=== PATIENT | female | born 1930 | race Caucasian/White ===

== ENCOUNTER → 2016-12-26 | Outpatient (CLI) | payer MEDICARE, OTHER ==
[~2016-12-26] MED LIST: ACETAMINOPHEN500 M5 PO; ALPRAZOLAM ER0.5 MG PO; ALPRAZOLAM PO; ALPRAZOLAM0.25 MG PO; ALPRAZOLAM0.5 MG PO; ANTIVERT PO; APAP325 M2 PO; APRESOLINE PO; ASPIRIN EC81 M1 PO; ASPIRIN PO; ASPIRIN81 MG PO; ATENOLOL PO; ATENOLOL25 MG PO; BISACODYL5 M1 PO; CEFTIN PO; CLARITHROMYCIN500 M2 PO; FERREX 150 FOR1 EACH PO; FERREX 150 PLU1 EACH PO; FLONASE SENSIM9.9 ML; HYDRALAZINE HCL25 MG PO; HYDRALAZINE HCL50 MG PO; HYDROCHLOROTHIA25 MG PO; LEVAQUIN250 MG PO; LIPITOR40 MG PO; LISINOPRIL PO; LISINOPRIL-HCTZ1 T16 PO; LISINOPRIL20 MG PO; METRONIDAZOLE PO; OMEPRAZOLE20 M1 PO; ONDANSETRON ODT4 MG PO; PRINIVIL40 MG PO; PROTONIX PO; REMERON PO; REMERON15 MG PO; TENORMIN25 MG PO; TENORMIN50 MG PO; TRAMADOL HCL50 M2 PO; TYLENOL325 M1 PO; VERAMYST10 GM; VIBRAMYCIN100 M1 PO; VITAMIN D250000 UNIT PO; XANAX0.5 MG PO
--- NOTE | ~2016-12-26 | MY11 ---
[facility] A Service of [facility] RADIOLOGY TEXT RESULTS PATIENT: ELLIOTT GRISSOM LOCATION: [facility] : 30 UNIT #: [id number] AGE: [address]: Toño Iraheta MD SEX: F ORDER DR: [id number] [facility] [address] [place], [place] [address] [id number] O MR#: [id number] #: [id number] NAME: ELLIOTT GRISSOM : 1930 SEX: F STUDY DATE/TIME: 12/26/2016 10:43 UNIT: [facility] ROOM: STUDY DESCRIPTION: MY Mammogram Screening Dig Hadley Attending Physician: Toño Iraheta M.D. Referring Physician: Toño Iraheta M.D. Ordering Physician: Toño Iraheta M.D. Primary Care Physician: Toño Iraheta M.D. MEDICAL IMAGING REPORT This report is preliminary unless electronic signature is present EXAM Digital screening mammogram, 12/26/2016 HISTORY 86-year-old woman no risk elevation. Two prior excisional biopsies right breast indicated benign. Annual screening. COMPARISON Mammograms date to 12/16/2004 with most recent comparison 05/23/2015. FINDINGS Digital imaging of each breast was completed utilizing screening protocol. Biopsy markers were placed on the right breast. Review includes FDA-approved CAD device. Breast parenchyma is only partially fatty replaced and moderately dense given the patient age. There is no interval occurring mass and I see no suspicious microcalcifications. There is nonspecific skin thickening noted on the right side which appears to be progressive. This is nonspecific. Correlate clinically. Left breast remains stable and negative. IMPRESSION Benign mammogram. Suggested progression of nonspecific skin thickening right breast. Correlate clinically. Annual screening is certainly optional at this age. Patients over the age of 40 are entered into a reminder system with target due date for the next mammogram. A result letter will also be sent to the patient. BIRADS: 2 Benign Finding Dictated by... [facility] A Service of [facility] RADIOLOGY TEXT RESULTS PATIENT: ELLIOTT GRISSOM LOCATION: [facility] : 30 UNIT #: [id number] AGE: [address]: Toño Iraheta MD SEX: F ORDER DR: Sim Morales M.D. THIS IS AN ELECTRONICALLY VERIFIED REPORT Sim Morales M.D. at 12/26/2016 1:59 PM Carol TD: 12/26/2016 12:29 JOB #: [id number] MEDICAL IMAGING REPORT Page 1 of 1 COPY
== END | disposition home or self-care (01) ==
LOC: CWCC 10:20
DX: Z12.31 Encounter for screening mammogram for malignant neoplasm of breast (principal); R23.4 Changes in skin texture; Z98.890 Other specified postprocedural states
CPT/HCPCS: G0202

== ENCOUNTER 2017-01-17 11:55 | Emergency (ER) | payer MEDICARE, OTHER ==
--- NOTE | ~2017-01-17 | EKG ---
PATIENT: ELLIOTT GRISSOM UNIT #: [id number] Ventricular Rate: 58 BPM Atrial Rate: 58 BPM P-R Interval: 144 ms QRS Duration: 78 ms Q-T Interval: 428 ms QTC Calculation(Bezet): 420 ms P [place]: 50 degrees Calculated R [place]: 12 degrees Calculated T [place]: 51 degrees Diagnosis Line: Sinus bradycardia with Premature supraventricular Diagnosis Line: complexes Diagnosis Line: Nonspecific ST abnormality Diagnosis Line: Abnormal ECG Diagnosis Line: When compared with ECG of 19-JUL-2016 17:57, Diagnosis Line: No significant change was found Diagnosis Line: Confirmed by HANK GRAJEDA MD ([id number]) on Diagnosis Line: 01/17/2017 9:37:13 PM INTERPRETING MD: DAMIAN
--- NOTE | ~2017-01-17 | MR18 ---
[facility] A Service of [facility] RADIOLOGY TEXT RESULTS PATIENT: ELLIOTT GRISSOM LOCATION: [facility] : 30 UNIT #: [id number] AGE: [address]: Casey Ibanez MD SEX: F ORDER DR: [id number] [facility] [address] [place], [place] [address] [id number] E MR#: [id number] Acc #: [id number] NAME: ELLIOTT GRISSOM : 1930 SEX: F STUDY DATE/TIME: 01/17/2017 13:39 UNIT: [facility] ROOM: STUDY DESCRIPTION: MR Brain Wo Contrast Attending Physician: Casey Ibanez M.D. Ordering Physician: Casey Ibanez M.D. Primary Care Physician: Toño Iraheta M.D. MRI CENTER REPORT This report is preliminary unless electronic signature is present. EXAM Brain MRI without HISTORY Neurologic deficit. Right sided headache and diaphoresis starting last evening with right sided facial numbness. History of hypertension and cardiac disease. No history of cancer. COMMENT MRI of the brain was performed without contrast using routine 1.5T imaging technique. Comparison head CT is from 07/21/2016. There is no evidence for a recent ischemic insult on the diffusion series. No MRI evidence for intracranial hemorrhage. No extraaxial fluid collection. There is extensive white matter disease as well as extensive signal abnormality in the bilateral basal ganglia, thalami to a lesser extent the brainstem. This is probably all due to small vessel disease given the patient's age group. There is unfortunately motion limitation of the study. No intracranial mass effect is appreciated. The major intracranial flow voids are maintained. The mastoid air cells are clear. The patient has had cataract surgery bilaterally. The paranasal sinuses are clear. There is no Chiari-I malformation. Degenerative change in the visualized upper cervical spine. IMPRESSION 1. No acute intracranial abnormality is appreciated. Allowing for motion, there is no evidence for recent ischemic insult on the diffusion series. There is fairly extensive probable sequelae of small vessel disease and generalized atrophy. There is no intracranial mass effect or extraaxial fluid collection. [facility] A Service of [facility] RADIOLOGY TEXT RESULTS PATIENT: ELLIOTT GRISSOM LOCATION: [facility] : 30 UNIT #: [id number] AGE: [address]: Casey Ibanez MD SEX: F ORDER DR: Dictated by... Bethany Jones M.D. THIS IS AN ELECTRONICALLY VERIFIED REPORT Bethany Jones M.D. at 01/17/2017 5:23 PM SAC/rnr TD: 01/17/2017 15:45 JOB #: [id number] MRI CENTER REPORT Page 1 of 1 COPY
[~2017-01-17 11:55] MED LIST changes: -ALPRAZOLAM ER0.5 MG PO; -ASPIRIN81 MG PO; -FERREX 150 FOR1 EACH PO; -FLONASE SENSIM9.9 ML; -REMERON PO; -TENORMIN25 MG PO; -TYLENOL325 M1 PO
[2017-01-17 12:32] LABS: POC - CKMB <1.0 ng/mL (0.0-7.9); POC - TROPONIN <0.05 ng/mL (<=0.05)
[2017-01-17 12:40] LABS: BASOPHIL# 0.1 X10e3 (0-0.3); BASOPHIL% 0.8 % (0-2.5); EOSINOPHIL# 0.2 X10e3 (0-0.7); EOSINOPHIL% 2.7 % (0.0-7.0); HEMATOCRIT 32.6 % (35.0-45.0); HEMOGLOBIN 10.6 gm/dL (12.0-16.0); LYMPHOCYTE# 1.1 X10e3 (1.0-3.5); LYMPHOCYTE% 13.3 % (17.0-45.0); MEAN CELL VOLUME 98.5 FL (83-96); MEAN CORPUSCULAR HEMOGLOBIN 31.9 PG (28-34); MEAN CORPUSCULAR HGB CONC 32.4 g/dL (30-36); MONOCYTE# 0.9 X10e3 (0-1.0); MONOCYTE% 11.4 % (3.0-12.0); NEUTROPHIL# 5.7 X10e3 (1.5-7.1); NEUTROPHIL% 71.8 % (40-75); PLATELET COUNT 141 X10e3 (140-420); RED BLOOD COUNT 3.31 X10e (3.90-5.30); RED CELL DISTRIBUTION WIDTH 14.3 % (11.0-15.5); WHITE BLOOD COUNT 7.9 X10e3 (4.0-10.5)
[2017-01-17 12:41] LABS: DIFF IND NO
[2017-01-17 12:54] LABS: PARTIAL THROMBOPLASTIN TIME 31.2 SECONDS (23.5-31.3); PROTHROMBIN TIME (PATIENT) 10.8 SECONDS (9.6-11.5)
[2017-01-17 13:04] LABS: BUN/CREATININE RATIO 16.42; CALCIUM SERUM 8.9 mg/dL (8.4-10.2); CREATININE SERUM 1.4 mg/dL (0.6-1.4); GLOM FILT RATE Estimated 33.9 mL/min (>60)
== END 2017-01-17 16:08 | disposition home or self-care (01) ==
LOC: CED 11:55
PROVIDERS: Emergency Medicine
DX: R20.2 Paresthesia of skin (principal); F41.9 Anxiety disorder, unspecified; Z88.0 Allergy status to penicillin; Z88.2 Allergy status to sulfonamides; Z79.899 Other long term (current) drug therapy
CPT/HCPCS: 70551; 80048; 82553; 84484; 85025; 85610; 85730; 93005; 99284

== ENCOUNTER → 2017-01-29 | Outpatient (CLI) | payer MEDICARE, OTHER ==
[~2017-01-29] MED LIST changes: +ALPRAZOLAM ER0.5 MG PO; +ASPIRIN81 MG PO; +FERREX 150 FOR1 EACH PO; +FLONASE SENSIM9.9 ML; +REMERON PO; +TENORMIN25 MG PO; +TYLENOL325 M1 PO
--- NOTE | ~2017-01-29 | US37 ---
[facility] A Service of [facility] RADIOLOGY TEXT RESULTS PATIENT: ELLIOTT GRISSOM LOCATION: [facility] : 30 UNIT #: [id number] AGE: [address]: Toño Iraheta MD SEX: F ORDER DR: [id number] [facility] [address] [place], [place] [address] [id number] O MR#: [id number] Acc #: [id number] NAME: ELLIOTT GRISSOM : 1930 SEX: F STUDY DATE/TIME: 01/29/2017 9:35 UNIT: [facility] ROOM: STUDY DESCRIPTION: US Carotid W/Doppler Bilateral Attending Physician: Toño Iraheta M.D. Referring Physician: Toño Iraheta M.D. Ordering Physician: Toño Iraheta M.D. Primary Care Physician: Toño Iraheta M.D. MEDICAL IMAGING REPORT This report is preliminary unless electronic signature is present EXAM Carotid Doppler, bilateral, 01/29/2017. HISTORY Syncope and headache for 2 weeks. TIA. Internal carotid artery stenosis. Numbness in right side of face, right arm, and right leg for 2 weeks. Hypertension and elevated cholesterol levels. Evaluate for carotid stenosis. TECHNIQUE Grayscale carotid artery images were obtained, as well as Doppler wave forms, spectral analysis, and color flow Doppler imaging. The examination was interpreted according to NASCET criteria. FINDINGS There is elevated peak systolic velocity in the distal right internal carotid artery of 194 cm/sec, characteristic of approximately 50% to 69% diameter reduction. Peak velocity in the right common and external carotid arteries was 90 cm/sec and 75 cm/sec, respectively. There is no hemodynamically significant stenosis in the left internal carotid artery, which demonstrated peak systolic velocity of 116 cm/sec. Peak velocity in the left common and external carotid arteries was 79 cm/sec and 75 cm/sec, respectively. Antegrade blood flow is seen in both vertebral arteries. There is minimal calcified plaque bilaterally. IMPRESSION 1. Approximately 50% to 69% diameter reduction involving the distal right internal carotid artery. 2. No hemodynamically significant stenosis in the left internal carotid artery. 3. Antegrade blood flow in both vertebral arteries. [facility] A Service of [facility] RADIOLOGY TEXT RESULTS PATIENT: ELLIOTT GRISSOM LOCATION: [facility] : 30 UNIT #: [id number] AGE: [address]: Toño Iraheta MD SEX: F ORDER DR: STAT * RESULT Dictated by... Tima Butler M.D. THIS IS AN ELECTRONICALLY VERIFIED REPORT Tima Butler M.D. at 01/30/2017 2:09 PM AKIN/jasmeet TD: 01/29/2017 15:44 JOB #: [id number] MEDICAL IMAGING REPORT Page 1 of 1 COPY
== END | disposition home or self-care (01) ==
LOC: CNIV 08:56
DX: I65.21 Occlusion and stenosis of right carotid artery (principal)
CPT/HCPCS: 93880

== ENCOUNTER → 2017-03-20 | Outpatient (CLI) | payer MEDICARE, OTHER ==
--- NOTE | ~2017-03-20 | US98 ---
[facility] A Service of [facility] RADIOLOGY TEXT RESULTS PATIENT: ELLIOTT GRISSOM LOCATION: [facility] : 30 UNIT #: [id number] AGE: [address]: Toño Iraheta MD SEX: F ORDER DR: [id number] [facility] [address] [place], [place] [address] [id number] O MR#: [id number] Acc #: [id number] NAME: ELLIOTT GRISSOM : 1930 SEX: F STUDY DATE/TIME: 03/20/2017 9:33 UNIT: [facility] ROOM: STUDY DESCRIPTION: US Pelvic Non-OB Complete Attending Physician: Toño Iraheta M.D. Referring Physician: Toño Iraheta M.D. Ordering Physician: Toño Iraheta M.D. Primary Care Physician: Toño Iraheta M.D. MEDICAL IMAGING REPORT This report is preliminary unless electronic signature is present EXAM Pelvic ultrasound INDICATION Postmenopausal vaginal bleeding 2 weeks ago. Single episode. PROCEDURE Benitez-scale, Doppler imaging of the pelvis via transabdominal and transvaginal approach. COMPARISON 01/20/2015 FINDINGS Pelvic structures are not well seen transabdominally. On transvaginal images the uterus is anteverted and measures 2.7 x 2.6 x 1.7 cm. Endometrium measures 5.0 mm in thickness. The ovaries are not well seen on the study. IMPRESSION 1. Endometrium measures 5.0 mm which is upper limits of normal for a postmenopausal female. This could be followed to document any interval change. Alternatively, endometrial sampling may be warranted. 2. The ovaries are not clearly seen. Dictated by... Kobi Sheffield M.D. THIS IS AN ELECTRONICALLY VERIFIED REPORT Kobi Sheffield M.D. at 03/21/2017 10:08 AM Vivian [facility] A Service of [facility] RADIOLOGY TEXT RESULTS PATIENT: ELLIOTT GRISSOM LOCATION: [facility] : 30 UNIT #: [id number] AGE: [address]: Toño Iraheta MD SEX: F ORDER DR: TD: 03/20/2017 15:48 JOB #: [id number] MEDICAL IMAGING REPORT Page 1 of 1 COPY
== END | disposition home or self-care (01) ==
LOC: CWCC 08:35
DX: N95.0 Postmenopausal bleeding (principal)
CPT/HCPCS: 76856

== ENCOUNTER 2017-05-01 10:16 | Observation (INO) | payer MEDICARE, OTHER ==
[~2017-05-01] VITALS: Ht 127 cm; Wt 37.2 kg
--- NOTE | ~2017-05-01 | A ---
[facility] Nutrition Therapy DATE: 05/03/17 Patient: ELLIOTT GRISSOM Physician: GARY Address: [address] [place] [address] STREET Room/Bed: [address] [place] [address], Zip: [place] [address] Admit Date: 05/01/17 Date of : 30 Height: 4 2 Weight: 81 37 NUTRITIONAL ASSESSMENT: REASON: Low BMI Admitting dx: 86 y/o female admitted with chest pain, cardiology diagnosed with uncontrolled HTN PMH: HTN, OA, HLD, PAD, CKD stage III, osteoporosis Anthropometrics: *Heights in [employer] conflicting; pt thinks she is 58", reports she has lost inches over the years, Wt: 83 lbs (pt confirms), BMI: 17.3 (underweight), 87% IBW [employer] weight in 2016: 98 lbs Labs: BUN 25, Creat 1.5, GFR 31.2, lytes/glucose/lipid panel WNL Meds: Zofran prn I/O & Bowel function: BM 04/30, denies N/V Skin Integrity: No significant issues, no edema Estimated Nutrition Needs: Increased due to underweight status and questionable weight loss Assessment: Chart reviewed, events noted. See admitting dx and PMH as stated above. See anthropometrics above. Pt is clinically underweight with unsure weight loss. Scored 0 points on the malnutrition risk screening however pt's friend at bedside says "she is smaller and smaller everytime I see her." 2016 weight in [employer] reflects a potential 13 lb weight loss in approx. 1 year (13.3% BW loss; significant) if weights are accurate. She is on a healthy heart diet, ate ~75% of breakfast this morning. Says she never eats much at one sitting and after she cooks at home does not feel like eating. RD encouraged adequate kcal/protein intake to promote weight gain. Pt reports not liking regular Ensure but is amenable to trying Ensure clear- will order. Encouraged pt to buy Ensure clear at grocery/drug store for home. See RD recs below, will follow hospital course. Dx: Underweight r/t advancing age, variable appetite/PO intake AEB BMI 17.3. Intervention: Regular diet, Ensure clear BID Monitoring, Evaluation and Goals: 1. PO intake > 50% of meals/supps. 2. Gradual weight gain towards a healthy BMI range. [facility] Nutrition Therapy DATE: 05/03/17 Patient: ELLIOTT GRISSOM Physician: GARY Address: [address] [place] [address] STREET Room/Bed: [address] [place] [address], Zip: [place] [address] Admit Date: 05/01/17 Date of : 30 Height: 4 2 Weight: 81 37 Monitor: per protocol, criteria to determine if above goals met Recommendations: 1. Please change diet to regular to liberalize food choices and order apple Ensure clear BID to provide extra oral kcals/protein to promote weight gain. 2. Please weigh q 3 days for monitoring purposes, as the pt is clinically underweight. RD will follow Mild nutrition risk Respectfully, Linda Garcia RD, LD [employer] [facility] [employer] cc: client file
--- NOTE | ~2017-05-01 | DS ---
Unit #: [id number] #: [id number] Patient: ELLIOTT GRISSOM [id number] [place], [place] [address] [id number] I MR#: [id number] NAME: ELLIOTT GRISSOM ROOM: 568 Age: 86 Sex: F Admission Date: 05/01/2017 : 1930 Discharge Date: 05/04/2017 Attending Physician: Toño Iraheta M.D. Primary Care Physician: Toño Iraheta M.D. DISCHARGE SUMMARY PRINCIPAL DISCHARGE DIAGNOSES 1. Atypical chest pain. 2. Palpitations. 3. Peripheral arterial disease. 4. PSVT. 5. Sinus bradycardia with significant pauses. 6. Hyperlipidemia. 7. Hypertension. 8. Osteoporosis. 9. Osteoarthritis. 10. Generalized anxiety disorder. 11. Chronic kidney disease stage 3. 12. Moderate aortic insufficiency. 13. Moderate mitral regurgitation. PROCEDURE None. LMSW Dr. Tatum. REASON FOR HOSPITALIZATION The patient is an 86-year-old white female with history of hypertension, generalized anxiety disorder, osteoporosis, chronic kidney disease stage 3, osteoarthritis, peripheral arterial disease admitted through the emergency room with palpitations and atypical chest pain. She is a poor historian. She also complained of a headache. In the ER, she was afebrile, slightly bradycardic at 53. Blood pressure was okay. Room air O2 saturation was 98%. Cardiac enzymes were normal. Hemoglobin was 11.3 which is stable and chronic for the patient. BNP was 159. CRP less than 0.5. Sed rate 18. TSH normal. Magnesium normal. LDL 60. GFR 33.9, stable. Chest x-ray: Stable cardiomegaly. No active disease. CT scan of the head: No active disease. EKG: Normal sinus rhythm, LVH, nonspecific ST abnormality. HOSPITAL COURSE The patient was admitted. She was placed on Lovenox, nitroglycerin paste, given aspirin. Cardiology was consulted. Repeat cardiac enzymes obtained and within normal range. Patient had significant sinus bradycardia with some minor pauses. Her atenolol was discontinued. She underwent V/Q scan. It showed a low probability of PE. She had an echo that showed a normal EF of 55% to 60%. No regional wall motion abnormalities, moderate aortic regurgitation, moderate mitral regurgitation, moderate tricuspid regurgitation, moderate pulmonary regurgitation, right ventricular Unit #: [id number] #: [id number] Patient: ELLIOTT GRISSOM systolic pressure of 55 mmHg. Her hydralazine dose was increased. Her home medications were reviewed. Patient's improved heart rate. Plan is to arrange for an outpatient event monitor per cardiology and then follow up in their office on July 25 at 1:15 p.m. She will see me in one week. She is a on regular diet. CURRENT MEDICATIONS 1. Tylenol 650 q.6 p.r.n. 2. Flonase nasal spray two sprays in both nostrils daily. 3. Remeron 15 mg p.o. nightly. 4. Xanax 0.25 mg t.i.d. p.r.n. for anxiety. 5. Tenormin is discontinued. 6. She is on hydralazine 100 mg t.i.d. 7. Aspirin 81 mg daily. 8. She is also on Lipitor dose unknown, but she will resume that at home. Dictated by... Toño Iraheta M.D. GEORGE/kavya TD: 05/06/2017 09:43 JOB #: [id number] DISCHARGE SUMMARY Page 1 of 1 X Toño Iraheta MD X DISCHARGE SUMMARY
--- NOTE | ~2017-05-01 | CR63 ---
[facility] A Service of [facility] RADIOLOGY TEXT RESULTS PATIENT: ELLIOTT GRISSOM LOCATION: [facility] [place] [facility] 568-01 : 30 UNIT #: [id number] AGE: [address]: Toño Iraheta MD SEX: F ORDER DR: [id number] [facility] [address] [place], [place] [address] [id number] I MR#: [id number] Acc #: [id number] NAME: ELLIOTT GRISSOM : 1930 SEX: F STUDY DATE/TIME: 05/02/2017 14:42 UNIT: [facility] [place] [facility] ROOM: [facility] STUDY DESCRIPTION: CR Chest 2 View Attending Physician: Toño Iraheta M.D. Ordering Physician: Toño Iraheta M.D. Primary Care Physician: Toño Iraheta M.D. MEDICAL IMAGING REPORT This report is preliminary unless electronic signature is present EXAM Chest x-ray 05/02/2017 INDICATIONS Shortness of air started today. History of hypertension. FINDINGS 2 views of the chest are compared with 05/01/2017. Heart remains enlarged. Lungs remain clear. No pneumothorax. IMPRESSION No active disease and no interval change. Dictated by... Casey Juarez Jr., M.D. THIS IS AN ELECTRONICALLY VERIFIED REPORT Casey Juarez Jr., M.D. at 05/03/2017 4:33 PM ARIELLA/omar TD: 05/02/2017 20:12 JOB #: [id number] MEDICAL IMAGING REPORT Page 1 of 1 COPY
--- NOTE | ~2017-05-01 | EKG ---
PATIENT: ELLIOTT GRISSOM UNIT #: [id number] Ventricular Rate: 59 BPM Atrial Rate: 59 BPM QRS Duration: 66 ms Q-T Interval: 418 ms QTC Calculation(Bezet): 413 ms Calculated R [place]: 12 degrees Calculated T [place]: 43 degrees Diagnosis Line: Normal sinus rhythm Diagnosis Line: Minimal voltage criteria for LVH, may be normal Diagnosis Line: variant Diagnosis Line: Nonspecific ST abnormality Diagnosis Line: Borderline ECG Diagnosis Line: When compared with ECG of 17-JAN-2017 12:15, Diagnosis Line: No significant change was found Diagnosis Line: Confirmed by FRANK VEGA MD ([id number]) on 05/01/2017 Diagnosis Line: 7:46:20 PM INTERPRETING MD: SILVIA PANDYA
--- NOTE | ~2017-05-01 | NM69 ---
[facility] A Service of [facility] RADIOLOGY TEXT RESULTS PATIENT: ELLIOTT GRISSOM LOCATION: [facility] 568-01 : 30 UNIT #: [id number] AGE: [address]: Toño Iraheta MD SEX: F ORDER DR: [id number] [facility] [address] [place], [place] [address] [id number] I MR#: [id number] Acc #: [id number] NAME: ELLIOTT GRISSOM : 1930 SEX: F STUDY DATE/TIME: 05/02/2017 13:53 UNIT: [facility] ROOM: [facility] STUDY DESCRIPTION: NM Pulm Vent and Perf Attending Physician: Toño Iraheta M.D. Ordering Physician: Toño Iraheta M.D. Primary Care Physician: Toño Iraheta M.D. MEDICAL IMAGING REPORT This report is preliminary unless electronic signature is present EXAM VQ lung scan HISTORY Chest pain since yesterday. Shortness of air. FINDINGS Ventilation scan was performed with 24.5 mCi technetium DTPA. Perfusion scan was performed with 4 mCi technetium MAA. Small matched subsegmental ventilation and perfusion defect in the posterior right upper lobe. No additional perfusion defect or VQ mismatch. IMPRESSION Low probability of pulmonary embolus. Dictated by... Shawn Heard M.D. THIS IS AN ELECTRONICALLY VERIFIED REPORT Shawn Heard M.D. at 05/03/2017 10:06 PM DFL/rnr TD: 05/02/2017 16:57 JOB #: [id number] MEDICAL IMAGING REPORT Page 1 of 1 COPY
--- NOTE | ~2017-05-01 | CO ---
Unit #: [id number] #: [id number] Patient: ELLIOTT GRISSOM [id number] [facility]. [address] [address] [id number] MR#: [id number] NAME: ELLIOTT GRISSOM ROOM: 568 Age: 86 Sex: F Admission Date: 05/01/2017 : 1930 Attending Physician: Toño Iraheta M.D. Primary Care Physician: Toño Iraheta M.D. CONSULTATION REPORT REASON FOR CONSULTATION Chest pain. HISTORY OF PRESENT ILLNESS This is an 86-year-old white female who took her blood pressure this morning and felt that it was high. She said she was weak, felt palpitations and was short of breath. She complained of headache. She came to the emergency room where she was found to be hypertensive with blood pressure 198/[address] of the head was normal. EKG shows no acute ischemic changes. Troponin was negative. The patient has risk factors for ischemic heart disease and includes hypertension and family history of premature coronary artery disease. She gives a history of cardiac catheterization years ago. Had a stress test in 2005 that was normal. She lives in assisted living facility and is able to do her chores and cook without symptoms. She says she has intermittent episodes of palpitations where she has a fast heart rate followed by a slow heart rate. She denies syncope or near syncope. Has been told to have paroxysmal supraventricular tachycardia in the past that was controlled on atenolol. PAST MEDICAL HISTORY 1. 2D echocardiogram 03/02/2008 with ejection fraction of greater than 55% with impaired left ventricular relaxation. There is trace mitral regurgitation and mild tricuspid regurgitation. 2. Stress test 06/17/2006 shows no ischemia or infarct. 3. Hypertension. 4. Chronic kidney disease. 5. Paroxysmal supraventricular tachycardia. 6. Chronic anemia. 7. Anxiety. 8. Nonsmoker. PAST SURGICAL HISTORY 1. Right breast cyst removal. 2. Cholecystectomy. 3. Appendectomy. 4. Bilateral cataract extraction. 5. Right hip repair of fracture. 6. Back surgery. SOCIAL HISTORY The patient lives at home alone. She has never smoked. She denies a history of illicit drug or alcohol use. Unit #: [id number] #: [id number] Patient: ELLIOTT GRISSOM FAMILY HISTORY Positive for heart disease in her sister. ALLERGIES Penicillin and sulfa. HOME MEDICATIONS 1. Tenormin 12.5 mg b.i.d. 2. Ferrex 150 mg b.i.d. 3. Flonase, two sprays each nostril daily. 4. Hydralazine 25 mg b.i.d. 5. Remeron 15 mg q. h.s. 6. Xanax 0.5 mg daily. 7. Acetaminophen 325 mg q.6 hours. REVIEW OF SYSTEMS CONSTITUTIONAL: Negative for fever or chills. Has no weight gain, no weight loss. Denies weakness and fatigue. HEENT: Has report of headache but no hearing or visual changes. No difficulty with swallowing. Denies dizziness. CARDIOVASCULAR: Denies chest pain. Reports occasional palpitations. No paroxysmal nocturnal dyspnea or orthopnea. Denies syncope or near syncope. RESPIRATORY: Had a report of shortness of breath this a.m. No cough or hemoptysis. GASTROINTESTINAL: No abdominal pain, nausea or vomiting. No constipation or melena. EXTREMITIES: Reports occasional lower extremity edema. PHYSICAL EXAMINATION VITAL SIGNS: Blood pressure 173/85, heart rate 54, temperature 98.2. BMI 17. GENERAL: This is a thin, frail, 86-year-old, elderly white female who is in no acute respiratory distress. NEUROLOGICAL: She is awake, alert and oriented. There are no focal weaknesses. NECK: Trachea midline. No thyromegaly or lymphadenopathy. No jugular venous distention. HEART: S1, S2 with a mid systolic click. Grade 1 out of 6 systolic murmur. No rubs. Regular rate and rhythm. ABDOMEN: Soft, nontender with bowel sounds present. LUNGS: Clear without rales, rhonchi or wheezing. EXTREMITIES: Without leg edema. SKIN: Warm and dry. DIAGNOSTIC STUDIES LABORATORY: Glucose 97, BUN 22, creatinine 1.4, sodium 139, potassium 4.6, BNP 159. Troponin less than 0.05 x2. White count 6.3, hemoglobin 11.3, hematocrit 34.0, platelet count is 180. IMAGING: Chest x-ray shows no active disease. Stable cardiomegaly. CT of the head shows no acute intracranial process. CARDIOVASCULAR: Electrocardiogram - sinus bradycardia with nonspecific ST wave abnormality. IMPRESSION 1. Uncontrolled hypertension. Unit #: [id number] #: [id number] Patient: ELLIOTT GRISSOM 2. Palpitations, questionable Paroxysmal supraventricular tachycardia secondary to sick sinus syndrome. 3. Anxiety. PLAN 1. Cardiology was asked to see the patient for chest pain. The patient denies any symptoms of angina. She only reports palpitations. Will repeat electrocardiogram. Monitor serial cardiac enzymes and troponin to rule out myocardial infarction. 2. Will increase hydralazine to 50 mg b.i.d. Will also add hydrochlorothiazide to control blood pressure. 3. Agree with aspirin. 4. Lipid profile and TSH will be obtained. 5. Will follow the patient with you. Thank you for allowing us to assist with this patient's care. Dictated by... Sam Loja A.P.R.N. for Jessica Mak/belén TD: 05/02/2017 08:42 JOB #: [id number] CONSULTATION REPORT Page 1 of 1 X Sma Loja APRN X CONSULTATION REPORT
--- NOTE | ~2017-05-01 | HP ---
Unit #: [id number] #: [id number] Patient: ELLIOTT GRISSOM [id number] [address] [place], [place] [address] [id number] MR#: [id number] NAME: ELLIOTT GRISSOM ROOM: 568 Age: 86 Sex: F Admission Date: 05/01/2017 : 1930 Attending Physician: Toño Iraheta M.D. Primary Care Physician: Toño Iraheta M.D. HISTORY AND PHYSICAL HISTORY OF PRESENT ILLNESS This is an 86-year-old white female with history of hypertension, generalized anxiety disorder, osteoporosis, chronic kidney disease - stage 3, osteoarthritis, hyperlipidemia, peripheral arterial disease with known carotid stenosis. Admitted through the emergency room with chest pain, which is extremely atypical. (1) patient but she could not remember whether it occurred at rest or with exertion. She is unclear whether it is related to a deep breath or not. She states that she has no chest pain now. She has been seen by cardiology. Her cardiac enzymes have all been normal. EKG shows no change. Did develop some sinus bradycardia overnight and is on high dose of atenolol at home for PSVT and is admitted for further evaluation. ALLERGIES Penicillin and sulfa drugs. MEDS PRIOR TO ADMISSION 1. Tenormin 12.5 mg b.i.d. 2. Ferrex 150 Forte Plus 1 caplet b.i.d. 3. Flonase nasal spray daily. 4. Hydralazine 25 mg b.i.d. 5. Remeron 15 mg q.h.s. 6. Xanax 0.5 mg 1/2 tab b.i.d. p.r.n. 7. Tylenol p.r.n. 8. She is also on Lipitor, but that is not on her list, and I am not sure of the dose. PAST SURGICAL HISTORY 1. Right breast cyst. 2. Cholecystectomy. 3. Appendectomy. 4. Bilateral cataract surgery. 5. Right hip surgery. 6. Back surgery. 7. She has had kyphoplasty twice for osteoporotic-related compression fractures. PAST MEDICAL HISTORY 1. PSVT. 2. Hypertension. 3. Hyperlipidemia. 4. Peripheral arterial disease. 5. Osteoarthritis. 6. Osteoporosis. Unit #: [id number] #: [id number] Patient: ELLIOTT GRISSOM 7. History of chronic kidney disease, stage 3. 8. Generalized anxiety disorder. 9. Allergic rhinitis. SOCIAL HISTORY Never . Nonsmoker, nondrinker. No street drug use. FAMILY HISTORY Family history is contributory for coronary artery disease, peripheral arterial disease, osteoporosis, type 1 diabetes mellitus. PHYSICAL EXAMINATION GENERAL: She is awake, alert, oriented x3, no acute distress but very nervous. ADMISSION VITALS: She is afebrile, pulse 53, respirations 18, blood pressure 141/52, room air O2 sat is 98%. HEENT: Unremarkable. NECK: Neck was supple without JVD, bruits, adenopathy or thyromegaly. CHEST: Clear to auscultation. CARDIOVASCULAR: Heart has a regular rhythm but is bradycardic without an S3 gallops or murmur appreciated. ABDOMEN: Abdomen was soft, nondistended, nontender with positive bowel sounds and no hepatosplenomegaly. EXTREMITIES: Extremities showed no clubbing, cyanosis or edema. /RECTAL: Deferred. NEUROLOGIC: Exam is grossly intact. DIAGNOSTIC STUDIES LAB VALUES: Cardiac enzymes normal x4 sets. CBC normal except for hemoglobin of 11.3. PT and PTT within normal limits. BNP 159. TSH normal at 1.07. Magnesium is normal at 1.7. CRP is less than 0.5. Sed rate 18. LDL 60. CMP is normal except for a GFR of 33.9. IMAGING: Chest x-ray - Stable cardiomegaly. No active disease. CT scan of the head - No active disease. CARDIOVASCULAR: EKG - Normal sinus rhythm, LVH, nonspecific ST abnormality. IMPRESSION 1. Atypical chest pain. 2. Headache. 3. PSVT. 4. Sinus bradycardia. 5. Peripheral arterial disease. 6. Hyperlipidemia. 7. Hypertension. 8. Osteoporosis. 9. Osteoarthritis. 10. Chronic kidney disease, stage 3. 11. Generalized anxiety disorder. PLAN Adjust the antihypertensives. Patient was on nitro paste and will stop that since her cardiac enzymes are all normal. Will place her on low-dose Lovenox for DVT prophylaxis. Clarify her home dose of Lipitor and await cardiology's further recommendations for the chest pain and the Unit #: [id number] #: [id number] Patient: ELLIOTT GRISSOM bradycardia. Dictated by Jessica Mckeon/toya TD: 05/02/2017 09:00 JOB #: [id number] HISTORY AND PHYSICAL Page 1 of 1 X Toño Iraheta MD X HISTORY AND PHYSICAL
--- NOTE | ~2017-05-01 | CT71 ---
[facility] A Service of [facility] RADIOLOGY TEXT RESULTS PATIENT: ELLIOTT GRISSOM LOCATION: [place] : 30 UNIT #: [id number] AGE: [address]: Ryder Chen DO SEX: F ORDER DR: [id number] [facility] [address] [place], [place] [address] [id number] E MR#: [id number] Acc #: [id number] NAME: ELLIOTT GRISSOM : 1930 SEX: F STUDY DATE/TIME: 05/01/2017 11:37 UNIT: [place] ROOM: STUDY DESCRIPTION: CT Head Wo Contrast Attending Physician: Ryder Chen D.O. Ordering Physician: Ryder Chen D.O. Primary Care Physician: Toño Iraheta M.D. MEDICAL IMAGING REPORT This report is preliminary unless electronic signature is present EXAM CT of the head without contrast. INDICATION Hypertension and headache starting this morning. TECHNIQUE Axial CT images were obtained from the vertex of the skull through the skull base. No intravenous contrast material was administered. This CT exam was performed with one or more of the following radiation dose reduction techniques: automatic exposure control, adjustment of mA and/or kV according to patient size, and iterative reconstruction. FINDINGS Comparison made to a prior study from July 19, 2016. No acute intracranial hemorrhage is identified. There is diffuse cerebral atrophy with compensatory ventricular dilatation, although it is certainly relatively mild for an 86-year-old woman. There is no midline shift or mass effect. There is some periventricular and deep white matter microangiopathic disease which is unchanged when compared to prior examinations. No focal areas of decreased attenuation are seen. There is some inspissated secretions seen within the maxillary sinuses bilaterally. Mastoid air cells appear clear. No aggressive osseous abnormalities are seen. There are no focal soft tissue abnormalities identified. IMPRESSION No acute intracranial process identified. Specifically, there is no evidence of acute hemorrhage, mass lesion, or acute infarct. [facility] A Service [facility] RADIOLOGY TEXT RESULTS PATIENT: ELLIOTT GRISSOM LOCATION: [place] : 30 UNIT #: [id number] AGE: [address]: Ryder Chen DO SEX: F ORDER DR: Dictated by... Shannan Winslow M.D. THIS IS AN ELECTRONICALLY VERIFIED REPORT Shannan Winslow M.D. at 05/01/2017 4:51 PM AFF/tmw TD: 05/01/2017 14:16 JOB #: [id number] MEDICAL IMAGING REPORT Page 1 of 1 COPY
--- NOTE | ~2017-05-01 | EKG ---
PATIENT: ELLIOTT GRISSOM UNIT #: [id number] Ventricular Rate: 53 BPM Atrial Rate: 53 BPM P-R Interval: 162 ms QRS Duration: 88 ms Q-T Interval: 450 ms QTC Calculation(Bezet): 422 ms P [place]: 77 degrees Calculated R [place]: 17 degrees Calculated T [place]: 48 degrees Diagnosis Line: Sinus bradycardia Diagnosis Line: Otherwise normal ECG Diagnosis Line: When compared with ECG of 01-MAY-2017 11:00, Diagnosis Line: ST no longer depressed in Inferior leads Diagnosis Line: Confirmed by FRANK VEGA MD ([id number]) on 05/04/2017 Diagnosis Line: 8:11:43 AM INTERPRETING MD: SILVIA PANDYA
--- NOTE | ~2017-05-01 | CR72 ---
[facility] A Service of [facility] RADIOLOGY TEXT RESULTS PATIENT: ELLIOTT GRISSOM LOCATION: [facility] : 30 UNIT #: [id number] AGE: [address]: Ryder Chen DO SEX: F ORDER DR: [id number] [facility] [address] [place], [place] [address] [id number] E MR#: [id number] Acc #: [id number] NAME: ELLIOTT GRISSOM : 1930 SEX: F STUDY DATE/TIME: 05/01/2017 11:15 UNIT: [facility] ROOM: STUDY DESCRIPTION: CR Chest Single View Portable Attending Physician: Ryder Chen D.O. Ordering Physician: Ryder Chen D.O. Primary Care Physician: Toño Iraheta M.D. MEDICAL IMAGING REPORT This report is preliminary unless electronic signature is present EXAM Portable chest 05/01 INDICATIONS Hypertension and shortness of air today. FINDINGS AP portable chest is compared with 07/19/2016. The heart is enlarged. The lungs are clear. There is some stable biapical pleural thickening. No pneumothorax is seen. IMPRESSION Stable cardiomegaly. No active disease. Dictated by... Casey Juarez Jr., M.D. THIS IS AN ELECTRONICALLY VERIFIED REPORT Casey Juarez Jr., M.D. at 05/01/2017 4:39 PM ARIELLA/omar TD: 05/01/2017 13:01 JOB #: [id number] MEDICAL IMAGING REPORT Page 1 of 1 COPY
[~2017-05-01 10:16] MED LIST changes: -ALPRAZOLAM ER0.5 MG PO; -ASPIRIN81 MG PO; -FERREX 150 FOR1 EACH PO; -FLONASE SENSIM9.9 ML; -REMERON PO; -TENORMIN25 MG PO; -TYLENOL325 M1 PO
[2017-05-01 10:56] LABS: POC - CKMB 5.1 ng/mL (0.0-7.9); POC - TROPONIN <0.05 ng/mL (<=0.05)
[2017-05-01 10:57] LABS: BASOPHIL# 0.1 X10e3 (0-0.3); BASOPHIL% 1.1 % (0-2.5); EOSINOPHIL# 0.2 X10e3 (0-0.7); EOSINOPHIL% 2.8 % (0.0-7.0); HEMOGLOBIN 11.3 gm/dL (12.0-16.0); LYMPHOCYTE# 1.4 X10e3 (1.0-3.5); LYMPHOCYTE% 22.6 % (17.0-45.0); MEAN CELL VOLUME 99.1 FL (83-96); MEAN CORPUSCULAR HEMOGLOBIN 32.8 PG (28-34); MEAN CORPUSCULAR HGB CONC 33.1 g/dL (30-36); MEAN PLATELET VOLUME 8.3 FL (6.5-11.5); MONOCYTE# 0.7 X10e3 (0-1.0); MONOCYTE% 11.1 % (3.0-12.0); NEUTROPHIL# 3.9 X10e3 (1.5-7.1); NEUTROPHIL% 62.4 % (40-75); PLATELET COUNT 180 X10e3 (140-420); RED BLOOD COUNT 3.43 X10e (3.90-5.30); RED CELL DISTRIBUTION WIDTH 13.7 % (11.0-15.5); WHITE BLOOD COUNT 6.3 X10e3 (4.0-10.5)
[2017-05-01 10:58] LABS: DIFF IND NO
[2017-05-01 11:14] LABS: PARTIAL THROMBOPLASTIN TIME 29.9 SECONDS (23.5-31.3); PROTHROMBIN TIME (PATIENT) 10.9 SECONDS (10.0-11.7)
[2017-05-01 11:43] LABS: BILIRUBIN,TOTAL 0.8 mg/dL (0.2-2.0); BUN/CREATININE RATIO 15.71; CALCIUM SERUM 9.3 mg/dL (8.4-10.2); CREATININE SERUM 1.4 mg/dL (0.6-1.4); GLOM FILT RATE Estimated 33.9 mL/min (>60); POTASSIUM 4.6 mmol/L (3.5-5.1); PROTEIN TOTAL SERUM 7.1 g/dL (6.0-8.3)
[2017-05-01] MEDS ORDERED: HYDRALAZINE HCL25 MG PO (12:23)
[2017-05-01] MEDS ORDERED: REMERON PO (12:23)
[2017-05-01] MEDS ORDERED: TENORMIN25 MG PO (12:23)
[2017-05-01] MEDS ORDERED: FLONASE SENSIM9.9 ML (12:23)
[2017-05-01] MEDS ORDERED: FERREX 150 FOR1 EACH PO (12:23)
[2017-05-01] MEDS ORDERED: TYLENOL325 M1 PO (12:24)
[2017-05-01] MEDS ORDERED: ALPRAZOLAM ER0.5 MG PO (12:24)
[2017-05-01 12:43] LABS: POC - CKMB <1.0 ng/mL (0.0-7.9); POC - TROPONIN <0.05 ng/mL (<=0.05)
[2017-05-01] MEDS ORDERED: LISINOPRIL PO (17:06)
[2017-05-01 21:01] LABS: MB 1.8 ng/ml
[2017-05-02 06:23] LABS: BUN/CREATININE RATIO 16.66; CALCIUM SERUM 8.3 mg/dL (8.4-10.2); CREATININE SERUM 1.5 mg/dL (0.6-1.4); GLOM FILT RATE Estimated 31.2 mL/min (>60); MAGNESIUM 1.7 mg/dL (1.6-3.0); POTASSIUM 3.8 mmol/L (3.5-5.1)
[2017-05-04] MEDS ORDERED: REMERON15 MG PO (10:41)
[2017-05-04] MEDS ORDERED: ASPIRIN81 MG PO (10:43)
== END 2017-05-04 12:57 | disposition home or self-care (01) ==
LOC: CED 10:16 → C5C 15:10 → CED 17:01 → C5C 17:01
PROVIDERS: Emergency Medicine; Internal Medicine; Nurse Practitioner
DX: R07.89 Other chest pain (principal); I12.9 Hypertensive chronic kidney disease with stage 1 through stage 4 chronic kidney disease, or unspecified chronic kidney disease; N18.3 Chronic kidney disease, stage 3 (moderate); I47.1 Supraventricular tachycardia; I35.1 Nonrheumatic aortic (valve) insufficiency; I34.0 Nonrheumatic mitral (valve) insufficiency; R00.2 Palpitations; I73.9 Peripheral vascular disease, unspecified; R00.1 Bradycardia, unspecified; M81.0 Age-related osteoporosis without current pathological fracture; E78.5 Hyperlipidemia, unspecified; M19.90 Unspecified osteoarthritis, unspecified site; F41.1 Generalized anxiety disorder; R51 Headache; Z82.49 Family history of ischemic heart disease and other diseases of the circulatory system; Z88.0 Allergy status to penicillin; Z88.2 Allergy status to sulfonamides; Z79.82 Long term (current) use of aspirin; Z79.899 Other long term (current) drug therapy; Z90.49 Acquired absence of other specified parts of digestive tract; Z98.41 Cataract extraction status, right eye; Z98.42 Cataract extraction status, left eye; Z98.890 Other specified postprocedural states
CPT/HCPCS: 36415; 70450; 71010; 71020; 78582; 80048; 80053; 80061; 82550; 82553; 83735; 83880; 84443; 84484; 85025; 85610; 85652; 85730; 86140; 87040; 93005; 93306; 96372; 96374; 99284; A9540; A9567; G0378; J1650; J1885